=== PATIENT | male | born 2000 | race Caucasian/White ===

== ENCOUNTER 2023-04-11 11:16 | Emergency (ER) | payer MEDICAID ==
[~2023-04-11] VITALS: Ht 167.6 cm; Wt 55.0 kg
[2023-04-11 11:30] VITALS: BP 99/55; PULSE 65; RESP 18; TEMP 97.8; O2SAT 99
[2023-04-11] MEDS ORDERED: BACITRACIN ZINC OINT UDPKT TOP ONE (14:30)
== END 2023-04-11 14:46 | disposition home or self-care (01) ==
LOC: ER 11:42
DX: S01.81XD Laceration without foreign body of other part of head, subsequent encounter (principal); Z48.00 Encounter for change or removal of nonsurgical wound dressing; X58.XXXD Exposure to other specified factors, subsequent encounter
CPT/HCPCS: 99281